=== PATIENT | male | born 1935 | race Caucasian/White ===

== ENCOUNTER → 2019-03-08 | Outpatient (CLI) | payer OTHER ==
[~2019-03-08] MED LIST: IOPAMIDOL 370 MG/ML 200 ML INFUS..BTL INJ ONE; SODIUM CHLORIDE 0.9% 500ML 500 ML ONE; SODIUM CHLORIDE 0.9% 50ML 50 ML ONE
[2019-03-08 10:47] LABS: CREATININE, SERUM 1.41 mg/dL (0.72-1.25)
--- NOTE | 2019-03-08 12:30 | Diagnostic Imaging Report ---
CT of the chest, with contrast, 03/08/2019. History: COPD, granulomatous disease. Comparison: None available. Technique: Multidetector CT scanning of the chest was performed from the level of the apices to the upper abdomen after intravenous administration of contrast. Coronal and sagittal multiplanar reformations were obtained. RADIATION DOSE: Total DLP: 545 mGy*cm Dose modulation, iterative reconstruction, and/or weight based adjustment of the mA/kV was utilized to reduce the radiation dose to as low as reasonably achievable. Discussion: Chest: The atria, ventricles, aorta, and main pulmonary artery are normal in size. The thyroid is unremarkable. There is no evidence of acute axillary or mediastinal adenopathy. Calcified left hilar and subcarinal lymph nodes are present. Multiple calcified granulomata are present within both lungs. Severe paraseptal emphysema is present involving the upper lobes. Linear scarring is present throughout both lungs. Multiple nodular opacities are present in the inferior lateral aspect of the right upper lobe ranging from 3 to 5 mm in diameter, most likely sequela of prior granulosus disease. There is no evidence of consolidation, suspicious mass, or pleural effusion. Limited evaluation of the upper abdomen shows normal adrenal glands. Bones and soft tissues: No acute abnormality. IMPRESSION: 1. Severe predominantly upper lobe paraseptal emphysema. 2. Findings of previous granulomatous disease throughout both lungs. Right upper lobe 3 to 5 mm nodules may be followed with repeat CT in 12 months. Signed by: Mahesh Kebede on 03/08/2019 12:27 PM
== END ==
LOC: CT 09:52
PROVIDERS: ATTEND Internal Medicine Critical Care Medicine
DX: J44.9 Chronic obstructive pulmonary disease, unspecified (principal); D71 Functional disorders of polymorphonuclear neutrophils
CPT/HCPCS: 36415; 71260; 82565; 84520; J7040; Q9967